=== PATIENT | female | born 1975 | race Caucasian/White ===

== ENCOUNTER 2024-01-02 20:35 | Emergency (ER) | payer OTHER, SELFPAY ==
[2024-01-02 20:39] VITALS: BP 121/94
[2024-01-02 20:41] VITALS: BMI 19.7
--- NOTE | 2024-01-02 22:19 | ED.GENMED ---
History of Present Illness
General
Chief Complaint: Skin Surface Trauma
Source: patient
Exam Limitations: none
Time Seen by Provider: 01/02/24 21:40
Nursing documentation reviewed up to this point in time: agreed with
History of Present Illness
History of Present Illness:
48 y/o F from [facility]
on withdrawal meds
has been incarcerated for 24 hours
here with left eyebrow laceration when she tripped into the [email or web address]
no loc
injury occured 7 30 pm
pt missed her night time8 pm withdrawal meds, clonazepam 2 mg and cloninidie 0.1 and zofran
she is requesting those
no vomiting, confusion, weakness, numbness, vision chagnes, neck pain
Past History
Past History
ED Past Medical History: None
ED Past Surgical History: None
Social History
Tobacco: Smoker
Alcohol: Occasional
Drug: Marijuana, Narcotics, IVDA and Other (crack cocaine)
Living: senior living
Review of Systems
Review of Systems
Allergies reviewed?: Yes
All Other Systems: Not applicable
Phy Exam
Physical Exam
Physical Exam:
GENERAL: Alert , in no apparent distress
HEAD: NCAT
FACE: left superior orbital laceration and heaomta approx 1.5 cm no bony tenderness
NECK: no midline tenderness, active ROM intact, no paraspinal muscle tenderness;
EYE: pupils equal and reactive, EOMs intact.
ENT: o/p clr, mmm. no hemotympanum
CARDIAC: Regular rate and rhythm, no edema
LUNGS: Clear breath sounds bilaterally, no acute respiratory distress, no wheezes/rales/rhonchi
ABDOMEN: Soft, without focal tenderness, no r/g, no cvat
NEUROLOGICAL: Alert and oriented, no focal neuro deficits, CN intact, 5/5 strength, sensation intact
SKIN: Warm and dry, track forrester
MUSCULOSKELETAL: No edema, well perfused.
PSYCH: Normal and appropriate interaction.
Course
Orders/Labs/Results
Orders:
Orders
01/02/24 22:18
Clonazepam [Klonopin] 1 mg PO NOW STA
Clonidine [Catapres] 0.1 mg PO NOW STA
01/02/24 22:19
Tetanus/Diphth/Acelpertussis [Adacel] 0.5 ml IM .ONCE ONE
01/02/24 22:20
Ondansetron Orally Disint [Zofran Odt (Orally Disintegrating)] 4 mg PO NOW STA
01/02/24 23:15
Acetaminophen [Tylenol] 650 mg PO NOW STA
Vital Signs
Initial and Last Documented VS:
Initial Vital Signs
Temp Pulse Resp BP Pulse Ox
98.7 F 98 18 121/94 97
01/02/24 20:39 01/02/24 20:39 01/02/24 20:39 01/02/24 20:39 01/02/24 20:39
Last Documented Vital Signs
Temp Pulse Resp BP Pulse Ox
98.7 F 83 18 146/101 97
01/02/24 20:39 01/02/24 22:43 01/02/24 22:43 01/02/24 22:43 01/02/24 23:00
Procedures
Laceration Closure
Left Lateral Eye brow:
Status of Wound: clean
Size of Wound in cm: 1.5
Preparation: cleaned with saline
Anesthesia: 1% Lidocaine with epi
Revision/Debridement: routine- no revision
Wound exploration: explored to base- no FB
Type of Closure: single layer closure
Skin Closure Material: 6-0 nylon
Number of sutures: 5
MDM/Problems Addressed
Differential Diagnosis Includes:
facial laceration, contusion
MDM/Problems Addressed:
48 y/o F incarcerated
polysubstance abuse
here from senior living after facial injury, laceration to left superior lateral orbit afer tripping into the bunk bed
no vomiting, loc, confusion
needs tetanus
pt was slightly drowsy but awake
no active signs of withdrawal
pt requesting night time meds for withdrawal
hypertensive 140/100 likely related to withdrawal
will give her dose but i did under dose the klonopin from 2 mg to 1 mg because pt seems to be crashing from being awake
it is very unlikely that this facial contusion caused any head truma/concussion
d/w ed attedning who agreed
pt is awake and alert, eating, well appearing stable for incareration
*Critical Care Note
Total Time (30-74mins, 75-104mins- exclusive of procedures): Not Applicable
ED Attending Note
-
Portions of this chart may have been created with voice recognition software.� Occasional wrong word or��sound alike� substitutions may have occurred due to the inherent limitations of voice recognition software.
Discharge Plan
Departure
Patient Disposition: Shelter
Date of Disposition: 01/02/24
Time of Disposition: 23:23
Patient with high blood pressure during this ER visit?: Yes
Condition: Fair
Covid-19: Not Applicable
Discharge Problem:
Laceration of face
Instructions: Laceration Repair With Stitches (DC)
Referrals:
[facility] [Family Provider] -
Activity Restrictions/Additional Instructions:
KEEP THE WOUND CLEAN AND DRY FOR 24 HOURS
AFTER THAT YOU CAN GET IT WET IN THE BATH/SHOWER ONCE A DAY AND MAKE SURE IT IS CLEAN AND THERE IS NO DRIED BLOOD ON THE STITCHES
APPLY NEOSPORIN AND A BANDAID
THE STITCHES NEED TO BE REMOVED IN ABOUT5-7 DAYS, SEE YOUR DOCTOR FOR THIS.
THE LAST DAY BEFORE STITCHES OUT, NO OINTMENT, LEAVE OPEN TO AIR
WATCH FOR SIGNS OF INFECTION AND RETURN NEEDED FOR PAIN, SWELLING, REDNESS, DRAINAGE, BLEEDING.
tylenol NEEDED FOR PAIN.
WE GAVE HER A DOSE OF KLONOPIN 1 MG, CLONIDINE 0.1 MG AND ZOFRAN AND A TETANUS SHOT
Interventions
Interventions:
*Risk Screen - Suicide Last Done: 01/02/24 20:41
*General Assessment Last Done: 01/02/24 20:41
*Neglect/Abuse Screening Last Done: 01/02/24 20:41
ED- Fall Risk Assessment Last Done: 01/02/24 21:26
*ED COVID-19 Vaccine History Last Done: 01/02/24 20:41
ED-Skin Assessment Last Done: 01/02/24 20:48
Discharge Date and Time
Print Language: BAHAMIAN
[2024-01-02] MEDS: ZOFRAN ODT (ORALLY DISINTEGRATING) 4 MG PO (22:27)
[2024-01-02] MEDS: ADACEL 0.5 ML IM (22:27)
[2024-01-02] MEDS: KLONOPIN 1 MG PO (22:27)
[2024-01-02] MEDS: CATAPRES 0.1 MG PO (22:27)
[2024-01-02 22:43] VITALS: BP 146/101
[2024-01-02] MEDS: TYLENOL 650 MG PO (23:21)
[2024-01-02 23:34] VITALS: BP 133/93
== END 2024-01-02 23:37 ==
LOC: EMR 20:35
PROVIDERS: EMERGENCY PHYSICIAN Student in an Organized Health Care Education/Training Program
DX: S01.112A Laceration without foreign body of left eyelid and periocular area, initial encounter (principal); W22.8XXA Striking against or struck by other objects, initial encounter; Y92.143 Cell of prison as the place of occurrence of the external cause; Z23 Encounter for immunization; F17.200 Nicotine dependence, unspecified, uncomplicated; F19.10 Other psychoactive substance abuse, uncomplicated
CPT/HCPCS: 99282; 12011; 90471; 90715

== ENCOUNTER 2025-06-01 13:30 | Emergency (ER) | payer OTHER, SELFPAY ==
[2025-06-01 13:34] VITALS: BP 125/79
--- NOTE | 2025-06-01 14:58 | ED.GENMED ---
History of Present Illness
General
Chief Complaint: Abnormal Lab Value
Time Seen by Provider: 06/01/25 14:39
History of Present Illness
History of Present Illness:
49-year-old female with history of polysubstance abuse presents to the emergency department with police custody for follow-up x-rays. During her intake at the correctional facility there was a question of a possible rectal foreign body. The
patient denies any rectal foreign bodies. She has no other complaints
Past History
Past History
ED Past Medical History: None
ED Past Surgical History: None
Social History
Tobacco: Smoker
Alcohol: Occasional
Drug: Marijuana, Narcotics, IVDA and Other (crack cocaine)
Living: residential
Review of Systems
Review of Systems
Allergies reviewed?: Yes
All Other Systems: ROS reviewed and negative except as documented in HPI and ROS
Phy Exam
Physical Exam
Physical Exam:
GEN: Well appearing, NAD, WDWN
HEENT: Oral mucosa moist, no scleral icterus
Cardiac: Regular rate
Lung: No respiratory distress, no tachypnea
MSK: No gross deformity or injuries
Skin: Good color, no pallor or jaundice, no rashes
Neuro: AO x3, moves all extremities freely
Psych: Calm, cooperative
Course
Orders/Labs/Results
Orders:
Orders
06/01/25 13:41
CR Abdomen - 1 View Urgent
Comment:
Reason For Exam: Potential drugs inserted into vaginal canal
Vital Signs
Initial and Last Documented VS:
Initial Vital Signs
Temp Pulse Resp BP Pulse Ox
97.9 F 88 19 125/79 100
06/01/25 13:34 06/01/25 13:34 06/01/25 13:34 06/01/25 13:34 06/01/25 13:34
Last Documented Vital Signs
Temp Pulse Resp BP Pulse Ox
97.9 F 88 19 125/79 100
06/01/25 13:34 06/01/25 13:34 06/01/25 13:34 06/01/25 13:34 06/01/25 15:00
MDM/Problems Addressed
MDM/Problems Addressed:
Moderate to large fecal burden is noted on x-rays without evidence for radiopaque foreign body. She is medically stable for incarceration
*Pulse Oximetry
SaO2: 100
Patient hypoxic: no
*Critical Care Note
Total Time (30-74mins, 75-104mins- exclusive of procedures): Not Applicable
ED Attending Note
-
Portions of this chart may have been created with voice recognition software.� Occasional wrong word or��sound alike� substitutions may have occurred due to the inherent limitations of voice recognition software.
Discharge Plan
Departure
Patient Disposition: Home (Routine Discharge)
Date of Disposition: 06/01/25
Time of Disposition: 14:59
Patient with high blood pressure during this ER visit?: No
Discharge Problem:
Possible rectal foreign body
Referrals:
[facility] [Family Provider, General]
Activity Restrictions/Additional Instructions:
X rays show no evidence of rectal foreign body
Medically stable for incarceration
Interventions
Interventions:
*Risk Screen - Suicide Last Done: 06/01/25 13:37
*General Assessment Last Done: 06/01/25 13:36
*Neglect/Abuse Screening Last Done: 06/01/25 13:37
*ED COVID-19 Vaccine History Last Done: 06/01/25 13:36
*ED Influenza Vaccine History Last Done: 06/01/25 13:36
[facility] Fall Risk Assessment Tool Last Done: 06/01/25 13:55
*Nursing Disposition Last Done: 06/01/25 15:15
Discharge Date and Time
Discharge Date/Time: 06/01/25 15:27
Print Language: [email or web address]
== END 2025-06-01 15:27 ==
LOC: EMR 13:30
PROVIDERS: EMERGENCY PHYSICIAN Emergency Medicine
DX: Z03.823 Encounter for observation for suspected inserted (injected) foreign body ruled out (principal); F17.200 Nicotine dependence, unspecified, uncomplicated
CPT/HCPCS: 99283; 74018